=== PATIENT | male | born 2005 | race Caucasian/White ===

== ENCOUNTER 2024-09-21 08:08 | Outpatient (OUT) | payer OTHER, SELFPAY ==
--- NOTE | 2024-09-21 08:12 | MR_ITS ---
The [address] [address] Patient Name: NIKOLAI ORTIZ MRN: [id number] date: 2005 Sex: M Assigned Patient Location: RAD Current Patient Location: RAD Accession/Order Number: [id number] Exam Date: 09/21/2024 08:40 Report Date: 09/21/2024 10:04 At the request of: CRYSTAL REHMAN Procedure: MR head/brain wo/w con MR head/brain wo/w con, 09/21/2024 8:40 AM EST INDICATION: Chronic Migraine, Left Ear Tinnitus COMPARISON: Prior MRI of the brain dated 01/16/2012 TECHNIQUE: Multiplanar, multisequence MRI images of brain were obtained without and with injection of contrast. FINDINGS: The cerebral sulci as well as ventricular system are appropriate for age. There is no restricted diffusion. Few nonspecific T12 FLAIR weighted images signal abnormalities within the coronary radiata mainly in frontal lobes likely consistent with migraine. There is no intracranial mass, mass effect, midline shift, intra or extra-axial fluid collection or large hemorrhage. No abnormal enhancing lesion is noted. Normal flow-void in the intracranial vessels is noted. The visualized portions of orbits, mastoid air cells as well as paranasal sinuses are unremarkable. MR/MR head/brain wo/w con IMPRESSION: No acute intracranial process is noted. Few nonspecific white matter changes likely compatible with migraine. Electronically authenticated by: NUBIA HITCHCOCK Date: 09/21/2024 10:04
--- NOTE | 2024-09-21 08:22 | XR_ITS ---
The [address] [address] Patient Name: NIKOLAI ORTIZ MRN: [id number] date: 2005 Sex: M Assigned Patient Location: RAD Current Patient Location: RAD Accession/Order Number: [id number] Exam Date: 09/21/2024 08:15 Report Date: 09/21/2024 08:29 At the request of: CRYSTAL REHMAN Procedure: XR foreign body eye SUKUMAR EXAMINATION: XR foreign body eye SUKUMAR HISTORY: Foreign Body Eye Screening COMPARISON: No relevant comparison available. FINDINGS: ORBITS: Negative for a metallic foreign body. OTHER: Negative. XR/XR foreign body eye SUKUMAR IMPRESSION: No metallic foreign bodies in the orbits Electronically authenticated by: SMITHA LEROY Date: 09/21/2024 08:29
== END 2024-09-21 08:09 | disposition home or self-care (01) ==
LOC: RAD 08:08
PROVIDERS: Visit Provider Nurse Practitioner Family
DX: G43.709 Chronic migraine without aura, not intractable, without status migrainosus (principal); H93.12 Tinnitus, left ear
CPT/HCPCS: 70030; 70553; A9575